=== PATIENT | female | born 1995 | race Caucasian/White ===

== ENCOUNTER 2018-12-18 11:37 | Emergency (ER) | payer OTHER ==
--- NOTE | 2018-12-18 12:27 | ED ---
Complex/Multi-Sys Presentation - History Of Current Complaint Chief Complaint: EDExtremityLower Hx Obtained From: Patient - Allergies/Home Medications Allergies/Adverse Reactions: Allergies Allergy/AdvReac Type Severity Reaction Status Date / Time adhesive tape Allergy See Comment Verified 12/18/18 11:52 ethinyl estradiol Allergy Shortness Verified 12/18/18 11:52 [From NuvaRing] of Breath etonogestrel [From NuvaRing] Allergy Shortness Verified 12/18/18 11:52 of Breath Penicillins Allergy See Comment Verified 12/18/18 11:52 shellfish derived Allergy Unknown Verified 12/18/18 11:52 Reaction Details Emvnlmg-Ldl-Crh Reductase Allergy See Comment Verified 12/18/18 11:52 Inhibitor birthcontrol and patches Allergy See Comment Uncoded 12/18/18 11:52 PMH/Surg Hx/FS Hx/Imm Hx Endocrine/Hematology History: Denies: Hx Diabetes Cardiovascular History: Reports: Hx Hypertension Denies: Hx Congestive Heart Failure History: Reports: Hx Kidney Stones - one in 2012, Other Problems/ Disorders - RENAL CALULI BEFORE. PCOS Denies: Hx Renal Disease Musculoskeletal History: Reports: Hx Back Problems - back sprain, Hx Orthopedic Injury - bilateral knees and ankles-hyperextension and hypermobility, Other Musculoskeletal History - left ACL sprain, left elbow fracture Sensory History: Reports: Hx Contacts or Glasses Opthamlomology History: Reports: Hx Contacts or Glasses Neurological History: Reports: Hx Migraine, Other Neuro Impairments/Disorders - migrane Psychiatric History: Reports: Hx Anxiety - Surgical History Surgery Procedure, Year, and Place: tonsillectomy, Left elbow fracture repair with pins placed Infectious Disease History: No Infectious Disease History: Denies: Traveled Outside the [place] in Last 30 Days - Family History Known Family History: Positive: Other - Mother - muscular dystrophy - Social History Alcohol Use: None Hx Substance Use: No Substance Use Type: Reports: None Hx Tobacco Use: Yes Smoking Status (MU): Former Smoker Have You Smoked in the Last Year: No Physical Exam Vital Signs On Initial Exam: Initial Vitals Temp Pulse Resp BP Pulse Ox 97.3 F 92 16 116/63 94 12/18/18 11:45 12/18/18 11:45 12/18/18 11:45 12/18/18 11:45 12/18/18 11:45 Diagnostics - Vital Signs Vital Signs Temp Pulse Resp BP Pulse Ox 12/18/18 11:45 97.3 F 92 16 116/63 94 - Laboratory Lab Statement: Any lab studies that have been ordered have been reviewed, and results considered in the medical decision making process. Discharge - Discharge Plan Referrals: Braxton BARNES,Austin Lewis [Primary Care Provider] -
--- NOTE | 2018-12-18 12:43 | ED ---
Lower Extremity - HPI Summary HPI Summary: The patient is a 23 year old F presenting to [facility] accompanied by her mother with a chief complaint of R ankle pain. Pt reports falling down stairs while leaving her house and hitting her ankle against a brick wall. Pt reports that pain was immediate and rates it an 8/10 in severity. She reported that she can move her toes but the pain is increased on the outside of her ankle when she does. She also reports swelling and tenderness to palpations. Symptoms are aggravated by weight bearing and ROM. Symptoms are alleviated by rest. - History of Current Complaint Chief Complaint: EDExtremityLower Stated Complaint: FALL RIGHT ANKLE PAIN PER PT Time Seen by Provider: 12/18/18 12:28 Hx Obtained From: Patient Mechanism Of Injury: Blunt Trauma - hit her ankle into a brick wall, Fall From A Standing Position - Pt fell down stairs Onset of Pain: Immediate Onset/Duration: Hours Severity Initially: Severe Severity Currently: Severe Pain Intensity: 8 Pain Scale Used: 0-10 Numeric Timing: Constant Location: Is Diffuse - ankle Associated Signs And Symptoms: Positive: Swelling, Other - ankle pain to ROM Aggravating Factor(s): Movement, Weight Bearing Alleviating Factor(s): Rest - Allergies/Home Medications Allergies/Adverse Reactions: Allergies Allergy/AdvReac Type Severity Reaction Status Date / Time adhesive tape Allergy See Comment Verified 12/18/18 11:52 ethinyl estradiol Allergy Shortness Verified 12/18/18 11:52 [From NuvaRing] of Breath etonogestrel [From NuvaRing] Allergy Shortness Verified 12/18/18 11:52 of Breath Penicillins Allergy See Comment Verified 12/18/18 11:52 shellfish derived Allergy Unknown Verified 12/18/18 11:52 Reaction Details Vcdjeoz-Eaz-Eve Reductase Allergy See Comment Verified 12/18/18 11:52 Inhibitor birthcontrol and patches Allergy See Comment Uncoded 12/18/18 11:52 Home Medications: Home Medications Omeprazole CAP (NF) [Prilosec CAP* 20 MG] 20 mg PO DAILY 12/18/18 [History Confirmed 12/18/18] PMH/Surg Hx/FS Hx/Imm Hx Previously Healthy: No Endocrine/Hematology History: Denies: Hx Diabetes Cardiovascular History: Reports: Hx Hypertension Denies: Hx Congestive Heart Failure History: Reports: Hx Kidney Stones - one in 2012, Other Problems/ Disorders - RENAL CALULI BEFORE. PCOS Denies: Hx Renal Disease Musculoskeletal History: Reports: Hx Back Problems - back sprain, Hx Orthopedic Injury - bilateral knees and ankles-hyperextension and hypermobility, Other Musculoskeletal History - left ACL sprain, left elbow fracture Sensory History: Reports: Hx Contacts or Glasses Opthamlomology History: Reports: Hx Contacts or Glasses Neurological History: Reports: Hx Migraine, Other Neuro Impairments/Disorders - migrane Psychiatric History: Reports: Hx Anxiety - Surgical History Surgery Procedure, Year, and Place: tonsillectomy, Left elbow fracture repair with pins placed Infectious Disease History: No Infectious Disease History: Denies: Traveled Outside the [place] in Last 30 Days - Family History Known Family History: Positive: Other - Mother - muscular dystrophy - Social History Alcohol Use: None Hx Substance Use: No Substance Use Type: Reports: None Hx Tobacco Use: Yes Smoking Status (MU): Former Smoker Have You Smoked in the Last Year: No Review of Systems Positive: Decreased ROM, Other - POSITIVE: Ankle pain, increased to lateral side of ankle with ROM Positive: Other - swelling at R ankle All Other Systems Reviewed And Are Negative: Yes Physical Exam - Summary Physical Exam Summary: Appearance: The patient is well-nourished in no acute distress and in no acute pain. Skin: The skin is warm and dry and skin color reflects adequate perfusion. Swollen over the R lateral malleolus HEENT: The head is normocephalic and atraumatic. The pupils are equal and reactive. The conjunctivae are clear and without drainage. Nares are patent and without drainage. Mouth reveals moist mucous membranes and the throat is without erythema and exudate. The external ears are intact. The ear canals are patent and without drainage. The tympanic membranes are intact. Neck: The neck is supple with full range of motion and non-tender. There are no carotid bruits. There is no neck vein distension. Respiratory: Chest is non-tender. Lungs are clear to auscultation and breath sounds are symmetrical and equal. Cardiovascular: Heart is regular rate and rhythm. There is no murmur or rub auscultated. There is no peripheral edema and pulses are symmetrical and equal. Abdomen: The abdomen is soft and non-tender. There are normal bowel sounds heard in all four quadrants and there is no organomegaly palpated. Musculoskeletal: There is no back tenderness noted. Extremities are tender over lateral malleolus, no lig laxity. There is good capillary refill. There is no peripheral edema or calf tenderness elicited. Neurological: Patient is alert and oriented to person, place and time. The patient has symmetrical motor strength in all four extremities. Cranial nerves are grossly intact. Deep tendon reflexes are symmetrical and equal in all four extremities. Psychiatric: The patient has an appropriate affect and does not exhibit any anxiety or depression Triage Information Reviewed: Yes Vital Signs On Initial Exam: Initial Vitals Temp Pulse Resp BP Pulse Ox 97.3 F 92 16 116/63 94 12/18/18 11:45 12/18/18 11:45 12/18/18 11:45 12/18/18 11:45 12/18/18 11:45 Vital Signs Reviewed: Yes Diagnostics - Vital Signs Vital Signs Temp Pulse Resp BP Pulse Ox 12/18/18 11:45 97.3 F 92 16 116/63 94 - Laboratory Lab Statement: Any lab studies that have been ordered have been reviewed, and results considered in the medical decision making process. - Radiology Ankle X-Ray Radiology Interpretation Completed By: Radiologist Summary of Radiographic Findings: Nonfocal soft tissue swelling. Negative for fracture or articular malalignment. Small plantar fascia origin bone spur. ED Physician has reviewed this report. Re-Evaluation - Re-Evaluation First Eval Re-Evaluation Time: 12:50 Change: Improved Comment: Pt was informed of discharge plan and is agreeable. Instructed to follow up with her PCP in 2-3 days and to return to the ED with any new or worsening symptoms. Pt requested a work note for tomorrow which was approved. Lower Extremity Course/Dx - Course Course Of Treatment: She had some mild swelling to the lateral aspect of her ankle without ligamentous laxity. Neurovascular and motor were completely intact. X-ray was negative and she was placed in a gel cast and recommended ice elevation etc. - Diagnoses Provider Diagnoses: Ankle sprain Discharge - Sign-Out/Discharge Documenting (check all that apply): Patient Departure - discharge Patient Received Moderate/Deep Sedation with Procedure: No - Discharge Plan Condition: Stable Disposition: HOME Patient Education Materials: Ankle Sprain (ED) Forms: *Work Release Referrals: Braxton BARNES,Austin Lewis [Primary Care Provider] - 2 Days Additional Instructions: Please follow up with your Primary care physician in 2-3 days and return to the emergency department with any new or worsening symptoms. - Billing Disposition and Condition Condition: STABLE Disposition: Home - Attestation Statements Document Initiated by Paolo: Yes Documenting Scribe: Olayinka Ambrose Provider For Whom Paolo is Documenting (Include Credential): Sriram Alexander MD Scribe Attestation: Olayinka Tapia, scribed for Sriram Alexander MD on 12/18/18 at 1540. Scribe Documentation Reviewed: Yes Provider Attestation: The documentation as recorded by the Olayinka sylvester accurately reflects the service I personally performed and the decisions made by me, Sriram Alexander MD Status of Scribe Document: Viewed
[2018-12-18 12:54] VITALS: BP 161/88
== END 2018-12-18 12:53 | disposition home or self-care (01) ==
LOC: ED 11:37
DX: S93.401A Sprain of unspecified ligament of right ankle, initial encounter (principal); W10.9XXA Fall (on) (from) unspecified stairs and steps, initial encounter; Y92.9 Unspecified place or not applicable; Z88.0 Allergy status to penicillin; I10 Essential (primary) hypertension; Z87.442 Personal history of urinary calculi; Z87.891 Personal history of nicotine dependence
CPT/HCPCS: 99282

== ENCOUNTER 2021-05-25 09:54 | Observation (INO) ==
[~2021-05-25 09:54] MED LIST: Buffered Lidocaine 1% SYRIN 1 ml INTRADERM ONE; Lactated Ringers 1000 ml BAG 1,000 ML IV SCH
[2021-05-25] MEDS ORDERED: Propofol 10 MG/ML 20 ML BTL ONE (10:53)
[2021-05-25] MEDS ORDERED: Succinylcholine 200 mg VIAL 20 mg/ml 10 ml VIAL (200 mg) ONE (10:53)
[2021-05-25] MEDS ORDERED: Rocuronium 50 mg VIAL 10 mg/ml 5 ml VIAL (50 mg) ONE (10:53)
[2021-05-25] MEDS ORDERED: Midazolam 2 mg/2 ml VIAL 1 mg/ml 2 ml VIAL (2 mg) ONE (10:53)
[2021-05-25] MEDS ORDERED: Ondansetron 4 mg VIAL 2 MG/ML 2 ml VIAL ONE ×2 (10:53→16:42)
[2021-05-25] MEDS ORDERED: Dexamethasone IV 4 MG/ML VIAL 1 ml VIAL ONE (10:53)
[2021-05-25] MEDS ORDERED: Lidocaine 2% PF 5 ML VIAL ONE (10:53)
[2021-05-25] MEDS ORDERED: fentaNYL 250 mcg/5 ml 50 MCG/ML 5 ml VIAL (250 MCG) ONE (10:54)
[2021-05-25] MEDS ORDERED: Lidocaine 1% w EPI 1:100,000 MDV 20 ML VIAL ONE (11:42)
[2021-05-25] MEDS ORDERED: DiMENhydriNATE IV 50 mg/ml 1 ml VIAL IV PUSH PRN (13:52)
[2021-05-25] MEDS ORDERED: Ondansetron 4 mg VIAL 2 MG/ML 2 ml VIAL IV PRN ×2 (13:52→19:08)
[2021-05-25] MEDS ORDERED: Acetaminophen IV 1 GM/100ML 100 ML IV ONE ×2 (13:52→17:03)
[2021-05-25] MEDS ORDERED: Naloxone 0.4 mg VIAL 0.4 mg/ml 1 ml VIAL IV PRN (13:52)
[2021-05-25] MEDS ORDERED: Omeprazole 20 mg CAP (NF) PO PRN (16:39)
[2021-05-25] MEDS ORDERED: fentaNYL 100 mcg/2 ml 50 MCG/ML VIAL ONE (17:00)
[2021-05-25] MEDS ORDERED: Calcium Carb (TUMS) 500 mg CHEW TAB PO SCH (17:00)
[2021-05-25] MEDS: fentaNYL 100 mcg/2 ml 50 MCG/ML VIAL IV PRN ×4 (17:01→17:42)
[2021-05-25] MEDS ORDERED: HYDROmorphone 1 MG/1 ML SYRINGE IV SLOW PU PRN (17:26)
[2021-05-25] MEDS: Calcium Carb (TUMS) 500 mg CHEW TAB PO SCH ×2 (20:21→22:19)
[2021-05-26] MEDS: Calcium Carb (TUMS) 500 mg CHEW TAB PO SCH ×6 (01:51→21:56)
[2021-05-27] MEDS: Calcium Carb (TUMS) 500 mg CHEW TAB PO SCH ×3 (01:57→08:54)
[2021-05-27] MEDS ORDERED: CALCIUM GLUCONATE 1GM/50ML NS 1 GM/50 ML BAG IV ONE ×2 (11:08→14:25)
[2021-05-27] MEDS ORDERED: CALCITRIOL 1 MCG/ML IV ONE (11:09)
[2021-05-27] MEDS: Calcium Carbonate LIQ 1,250 mg/5 ml UDC PO SCH ×3 (13:54→20:43)
[2021-05-28] MEDS: Calcium Carbonate LIQ 1,250 mg/5 ml UDC PO SCH ×2 (05:49→09:24)
[2021-05-28 08:30] LABS: Calcium 7.7 mg/dL (8.6-10.3); Magnesium 1.6 mg/dL (1.9-2.7)
[2021-05-28] MEDS ORDERED: Magnesium Sulfate 2 gm BAG 2 GM/50 ML BAG IVPB ONE (08:31)
[2021-05-28 12:02] VITALS: BP 113/70
== END 2021-05-28 12:40 | disposition home or self-care (01) | DRG 404 ==
LOC: SSU 09:54 → OR 09:54 → SSU 05-26 21:51
PROVIDERS: ADMIT Otolaryngology; ATTEND Internal Medicine